=== PATIENT | male | born 1970 | race Caucasian/White ===

== ENCOUNTER 2019-09-22 18:12 | Emergency (ER) | payer OTHER ==
[~2019-09-22] VITALS: Ht 183 cm; Wt 132.0 kg
[2019-09-22] MEDS ORDERED: NAPR-915 (18:17)
[2019-09-22] MEDS ORDERED: ALLO300T2 (18:17)
--- NOTE | 2019-09-22 18:38 | ED Chest Pain ---
General Chief Complaint: Chest Pain Stated Complaint: SOA,CHEST PAIN Nursing Triage Note: Patient reports sternal chest pain starting this morning when he woke up. Patient reports that he was SOA with exertion, but his pain has subsided after chewing 324mg of aspirin Nursing Sepsis Screen: No Definite Risk Source: patient, spouse History of Present Illness Date Seen by Provider: Sep 22, 2019 Time Seen by Provider: 18:14 Initial Comments 49-year-old male presenting with complaints of chest pain and shortness of breath that has been going on since this morning. It's worse with activity or exertion. He has had a mild cough as well. He denies any sweating or nausea. He denies having symptoms like this before. He has a family history of cardiac disease with his father in his 50s. He had taken 324 mg of aspirin and that helped with his pain. He states that he has no symptoms currently. Allergies and Home Medications Allergies Coded Allergies: No Known Drug Allergies (Unverified , 09/22/19) Patient Home Medication List Home Medication List Reviewed: Yes Review of Systems Review of Systems Constitutional: No chills, No diaphoresis, No fever EENTM: No Symptoms Reported Respiratory: Cough (mild), Shortness of Air Cardiovascular: Chest Pain Gastrointestinal: No Symptoms Reported Genitourinary: No Symptoms Reported Musculoskeletal: back pain (chronic) Skin: no symptoms reported Psychiatric/Neurological: No Symptoms Reported Endocrine: No Symptoms Reported Past Nglayao-Zmxnjt-Ibumkc Hx Past Med/Social Hx: Reviewed Nursing Past Med/Soc Hx Patient Social History Alcohol Use: Denies Use Recreational Drug Use: No Smoking Status: Never a Smoker Recent Foreign Travel: No Contact w/Someone Who Travel: No Recent Infectious Disease Expo: No Past Medical History Surgeries: Yes Orthopedic Respiratory: No Cardiac: No Neurological: No Genitourinary: No Gastrointestinal: No Musculoskeletal: Yes Gout Endocrine: No HEENT: No Cancer: No Psychosocial: No Integumentary: No Blood Disorders: No Physical Exam Vital Signs Vital Signs - First Documented 09/22/19 09/22/19 18:15 18:20 Temp 36.6 Pulse 103 Resp 18 B/P (MAP) 171/103 (125) Pulse Ox 96 O2 Delivery Room Air Capillary Refill : Less Than 3 Seconds Height, Weight, BMI Height: '" Weight: lbs. oz. kg; 39.00 BMI Method: General Appearance: No Apparent Distress, WD/WN HEENT: PERRL/EOMI, Pharynx Normal Neck: Full Range of Motion, Normal Inspection, Non Tender, Supple Respiratory: Chest Non Tender, Lungs Clear, Normal Breath Sounds, No Accessory Muscle Use, No Respiratory Distress Cardiovascular: Regular Rate, Rhythm, Normal Peripheral Pulses Gastrointestinal: Normal Bowel Sounds, No Pulsatile Mass, Non Tender, Soft Extremity: Normal Capillary Refill, No Pedal Edema Neurologic/Psychiatric: Alert, Oriented x3, No Motor/Sensory Deficits Skin: Normal Color, Warm/Dry Progress/Results/Core Measures Results/Orders Lab Results Laboratory Tests Test 09/22/19 18:25 09/22/19 19:50 Range/Units White Blood Count 8.2 4.3-11.0 10^3/uL Red Blood Count 4.66 4.35-5.85 10^6/uL Hemoglobin 15.0 13.3-17.7 G/DL Hematocrit 43 40-54 % Mean Corpuscular Volume 91 80-99 FL Mean Corpuscular Hemoglobin 32 25-34 PG Mean Corpuscular Hemoglobin Concent 35 32-36 G/DL Red Cell Distribution Width 13.3 10.0-14.5 % Platelet Count 233 130-400 10^3/uL Mean Platelet Volume 9.9 7.4-10.4 FL Neutrophils (%) (Auto) 80 H 42-75 % Lymphocytes (%) (Auto) 10 L 12-44 % Monocytes (%) (Auto) 9 0-12 % Eosinophils (%) (Auto) 0 0-10 % Basophils (%) (Auto) 0 0-10 % Neutrophils # (Auto) 6.7 1.8-7.8 X 10^3 Lymphocytes # (Auto) 0.8 L 1.0-4.0 X 10^3 Monocytes # (Auto) 0.8 0.0-1.0 X 10^3 Eosinophils # (Auto) 0.0 0.0-0.3 10^3/uL Basophils # (Auto) 0.0 0.0-0.1 10^3/uL Prothrombin Time 13.4 12.2-14.7 SEC INR Comment 1.0 0.8-1.4 Activated Partial Thromboplast Time 25 24-35 SEC Sodium Level 141 135-145 MMOL/L Potassium Level 4.2 3.6-5.0 MMOL/L Chloride Level 103 98-107 MMOL/L Carbon Dioxide Level 27 21-32 MMOL/L Anion Gap 11 5-14 MMOL/L Blood Urea Nitrogen 16 7-18 MG/DL Creatinine 1.10 0.60-1.30 MG/DL Estimat Glomerular Filtration Rate > 60 BUN/Creatinine Ratio 15 Glucose Level 90 70-105 MG/DL Calcium Level 9.6 8.5-10.1 MG/DL Corrected Calcium 9.4 8.5-10.1 MG/DL Magnesium Level 1.7 1.6-2.4 MG/DL Total Bilirubin 0.6 0.1-1.0 MG/DL Aspartate Amino Transf (AST/SGOT) 22 5-34 U/L Alanine Aminotransferase (ALT/SGPT) 30 0-55 U/L Alkaline Phosphatase 90 40-136 U/L Troponin I < 0.30 < 0.30 <0.30 NG/ML Pro-B-Type Natriuretic Peptide 129.3 H <75.0 PG/ML Total Protein 7.5 6.4-8.2 GM/DL Albumin 4.3 3.2-4.5 GM/DL Lipase 20 8-78 U/L My Orders Orders - LETTY DHALIWAL MD Cbc With Automated Diff (09/22/19 18:19) Magnesium (09/22/19 18:19) Chest 1 View Ap/Pa Only (09/22/19 18:19) Ekg Tracing (09/22/19 18:19) Comprehensive Metabolic Panel (09/22/19 18:19) Protime With Inr (09/22/19 18:19) Partial Thromboplastin Time (09/22/19 18:19) O2 (09/22/19 18:19) Monitor-Rhythm Ecg Trace Only (09/22/19 18:19) Ed Iv/Invasive Line Start (09/22/19 18:19) Lipase (09/22/19 18:19) Troponin I Fs (09/22/19 18:19) Probnp Fs (09/22/19 18:19) Troponin I Fs (09/22/19 20:00) Vital Signs/I&O 09/22/19 09/22/19 09/22/19 09/22/19 18:15 18:20 18:28 20:54 Temp 36.6 37.5 Pulse 103 100 Resp 18 18 B/P (MAP) 171/103 (125) 180/90 Pulse Ox 96 98 O2 Delivery Room Air Room Air Room Air Blood Pressure Mean: 125 Progress Progress Note #1: Progress Note Check labs as well as chest x-ray and electrocardiogram. If he has recurrent pain will repeat a electrocardiogram. He had 324 mg of aspirin already so will not repeat that. He has some borderline T-wave changes and some Q waves in his electrocardiogram but there is no acute ST elevation Progress Note #2: Progress Note Labs are all stable without acute significant abnormality. His initial troponin is negative. There is no acute findings on his chest x-ray. Ordered a second troponin to see if there is any change. Initially the patient was saying that he needed to leave and was going to leave AMA rather than wait for the test result. He was having a lot of back pain and the ER cot was not comfortable for him. He then decided that he would wait for the results come back. The repeat troponin did come back still 0. Discharged with instructions to follow up with clinic and with cardiology Initial ECG Impression Date: Sep 22, 2019 Initial ECG Impression Time: 18:20 Initial ECG Rate: 97 Initial ECG Rhythm: Normal Sinus Initial ECG Comparisson: No Previous ECG Available Comment Sinus rhythm with heart rate of 97 bpm. Low voltage in the precordial leads. IL interval of 153 ms. QT interval 345 ms and a QTc interval 439 ms. Borderline T- wave abnormalities in the inferior leads. No prior tracing available for comp rossana. Diagnostic Imaging Diagonstic Imaging: Xray Plain Films/CT/US/NM/MRI: chest Comments NAME: JAYMIE PACKER [facility] REC#: [id number] PT STATUS: REG ER : 1970 PHYSICIAN: LETTY DHALIWAL MD ADMIT DATE: 09/22/19/ER FS Draft Date of Exam:09/22/19 CHEST 1 VIEW AP/PA ONLY INDICATION: Chest pain. COMPARISON: No prior examination is available for comparison. EXAMINATION: Single view of the chest was obtained. FINDINGS: Heart size is normal. There is no pleural effusion, pneumothorax or pneumonia. Mediastinum is unremarkable. IMPRESSION: No acute cardiopulmonary abnormality. Dictated on workstation # [id number] Dict: 09/22/191838 Trans: 09/22/19 184 [facility] [id number] Interpreted by: RAMSES HOLMAN MD Electronically signed by: Departure Impression Primary Impression: Chest pain on exertion Additional Impression: Dyspnea on exertion Disposition: 01 HOME, SELF-CARE Condition: Stable Departure-Patient Inst. Decision time for Depature: 20:49 Referrals: CHRISTIANE LUA MD (PCP/Family) Primary Care Physician Patient Instructions: Shortness of Breath (Dyspnea) (DC), Chest Pain (DC) Add. Discharge Instructions: Check back with Dr. Lua and you would benefit from having stress testing done as well. Return or seek medical care immediately if you have worsening symptoms or more problems All discharge instructions reviewed with patient and/or family. Voiced understanding. LETTY DHALIWAL MD Sep 22, 2019 18:38
[2019-09-22 18:39] LABS: HEMATOCRIT 43 % (40-54); MEAN CORPUSCULAR HEMOGLOBIN 32 PG (25-34); WHITE BLOOD COUNT 8.2 10^3/uL (4.3-11.0)
[2019-09-22 18:40] LABS: BASOPHILS % (AUTO) 0 % (0-10); EOSINOPHILS % (AUTO) 0 % (0-10); LYMPHOCYTES # (AUTO) 0.8 X 10^3 (1.0-4.0); LYMPHOCYTES % (AUTO) 10 % (12-44); MEAN CORPUSCULAR HGB CONC 35 G/DL (32-36); MEAN CORPUSCULAR VOLUME 91 FL (80-99); MEAN PLATELET VOLUME 9.9 FL (7.4-10.4); MONOCYTES # (AUTO) 0.8 X 10^3 (0.0-1.0); MONOCYTES % (AUTO) 9 % (0-12); NEUTROPHILS # (AUTO) 6.7 X 10^3 (1.8-7.8); NEUTROPHILS % (AUTO) 80 % (42-75); PLATELET COUNT 233 10^3/uL (130-400); RED CELL DISTRIBUTION WIDTH 13.3 % (10.0-14.5)
--- NOTE | 2019-09-22 18:41 | Diagnostic Imaging Report ---
INDICATION: Chest pain. COMPARISON: No prior examination is available for comparison. EXAMINATION: Single view of the chest was obtained. FINDINGS: Heart size is normal. There is no pleural effusion, pneumothorax or pneumonia. Mediastinum is unremarkable. IMPRESSION: No acute cardiopulmonary abnormality. Dictated by: Dictated on workstation # [id number]
[2019-09-22 18:59] LABS: PROTHROMBIN TIME PATIENT 13.4 SEC (12.2-14.7)
[2019-09-22 19:06] LABS: CARBON DIOXIDE 27 MMOL/L (21-32); CHLORIDE 103 MMOL/L (98-107); POTASSIUM 4.2 MMOL/L (3.6-5.0); SODIUM 141 MMOL/L (135-145)
[2019-09-22 19:07] LABS: ALANINE AMINOTRANSFERASE 30 U/L (0-55); ALBUMIN 4.3 GM/DL (3.2-4.5); ALKALINE PHOSPHATASE 90 U/L (40-136); BILIRUBIN,TOTAL 0.6 MG/DL (0.1-1.0); BUN/CREATININE RATIO 15; CALCIUM 9.6 MG/DL (8.5-10.1); GFR ESTIMATED > 60; GLUCOSE 90 MG/DL (70-105); LIPASE 20 U/L (8-78); MAGNESIUM 1.7 MG/DL (1.6-2.4); TOTAL PROTEIN 7.5 GM/DL (6.4-8.2)
[2019-09-22 20:54] VITALS: BP 180/90
== END 2019-09-22 21:02 | disposition home or self-care (01) ==
LOC: EDUNIT# 18:12 → ER FS 18:13
DX: R07.89 Other chest pain (principal); R06.09 Other forms of dyspnea; Z79.82 Long term (current) use of aspirin
CPT/HCPCS: 36415; 71045; 80053; 83690; 83735; 83880; 84484; 85025; 85610; 85730; 93005; 93041

== ENCOUNTER → 2019-10-02 | Outpatient (CLI) | payer OTHER ==
[~2019-10-02] MED LIST: ALLO300T2; NAPR-915
== END ==
LOC: CARD 15:13
PROVIDERS: ATTEND Internal Medicine Cardiovascular Disease
DX: I34.0 Nonrheumatic mitral (valve) insufficiency (principal); E66.9 Obesity, unspecified; I11.9 Hypertensive heart disease without heart failure
CPT/HCPCS: 93306; 93351